=== PATIENT | female | born 1955 ===

== ENCOUNTER 2017-08-13 06:57 | Day surgery (SDC) | payer OTHER, BC ==
[2017-08-07 09:56] VITALS: BMI 27.6
[2017-08-13] MEDS ORDERED: Lidocaine 1% Inj (20ml) ONE (07:45)
[2017-08-13] MEDS ORDERED: Bupivacaine HCl 0.25% PF (10 ml) Inj ONE (07:45)
[2017-08-13] MEDS ORDERED: ceFAZolin 1 gm FROZEN Premix 1 GM/50 ML ML IVPB ONE (07:45)
[2017-08-13] MEDS ORDERED: Propofol 10 mg/ml Inj (20 ML) ONE (07:59)
[2017-08-13] MEDS ORDERED: Midazolam 2 MG/2 ML VIAL ONE (07:59)
[2017-08-13] MEDS ORDERED: Lactated Ringer's 1,000 ML IV ONE (08:00)
[2017-08-13] MEDS ORDERED: Bupivacaine 0.5%/Epi 1:200,000 (10 ML SOL) ONE (08:13)
--- NOTE | 2017-08-13 09:17 | PCM.SURG1 ---
Surgeon's Initial Post Op Note - Surgeon's Notes Surgeon: Dr. Singh Clinical Documentation Developer: Dr. Lozano PGY2, Roxanna Anderson OMS3 Type of Anesthesia: General Endo Pre-Operative Diagnosis: Left neck lipoma Operative Findings: see dictation Post-Operative Diagnosis: same Operation Performed: exicison of left neck lipoma Specimen/Specimens Removed: neck lipoma Estimated Blood Loss: EBL {In ML}: 5 Post-Op Condition: Good Date of Surgery/Procedure: 08/13/17 Time of Surgery/Procedure: 08:00
[2017-08-13 11:02] VITALS: BP 113/55; PULSE 76; RESP 18; TEMP 97; O2SAT 100
--- NOTE | 2017-08-13 20:01 | OP ---
PROCEDURE DATE: 08/13/2017 PREOPERATIVE DIAGNOSIS: Lipoma of left neck, posterior. POSTOPERATIVE DIAGNOSIS: Lipoma of left neck, posterior. PROCEDURE CARRIED OUT: Excision of 5 cm lipoma, left neck region. SURGEON: Cassius Singh Jr., MD [place]ARDROBE SPECIALIST: Dr. Rodríguez, resident. ANESTHESIOLOGIST: Dave Simental MD INDICATIONS FOR PROCEDURE: The patient is a 62-year-old woman who has a painful lipoma on her left neck. OPERATIVE FINDINGS: Prior to the operation, the risk of spinal accessory nerve injury was discussed extensively with the patient. She both understood and accepted the risk inherent in this procedure. The lesion was subcutaneous lesion, which was removed, it was not well encapsulated. After that had been removed, the wound was approximated after hemostasis was obtained. Monocryl sutures and glue, and Steri-Strips were applied to the neck. Blood loss was 5 to 10 mL. Cassius Singh Jr., MD cc:
== END 2017-08-13 11:19 | disposition home or self-care (01) ==
LOC: C.SDS 06:57
PROVIDERS: ATTEND Surgery Vascular Surgery
DX: D17.0 Benign lipomatous neoplasm of skin and subcutaneous tissue of head, face and neck (principal); E11.9 Type 2 diabetes mellitus without complications; I10 Essential (primary) hypertension; E78.5 Hyperlipidemia, unspecified
CPT/HCPCS: 11426; 82948; 88304; J0690; J2001; J2250; J2704; J3010; J7120